=== PATIENT | male | born 1950 | race Caucasian/White ===

== ENCOUNTER 2016-05-25 05:16 | Emergency (ER) | payer OTHER ==
[~2016-05-25 05:16] MED LIST: CYMBALTA60 MG PO; DESYREL 50 MG T50 MG PO; FISH OIL 1,0001 EAC3 PO; IBUPROFEN800 MG PO; NEURONTIN 300300 MG PO; NORCO 10-325 T1 EACH PO; OXYCODONE HCL10 MG PO; PREDNISONE 10 M10 MG PO; PRILOSEC40 MG PO; REMERON15 MG PO; SUPER B COMPLE150 MG PO; SYNTHROID175 MCG PO; VITAMIN C 500500 MG PO; VITAMIN D 11000 UNIT PO; ZANAFLEX4 MG PO
== END 2016-05-25 06:00 | disposition left against medical advice (07) ==
LOC: ER1 05:16
DX: Z53.21 Procedure and treatment not carried out due to patient leaving prior to being seen by health care provider (principal)

== ENCOUNTER 2020-11-18 18:26 | Emergency (ER) | payer OTHER ==
[~2020-11-18] VITALS: Ht 180.3 cm; Wt 88.5 kg
[2020-11-18 19:02] LABS: HEMOGLOBIN 11.8 gm/dl (14.0-17.5); RED BLOOD COUNT 3.64 M/UL (4.20-5.50); WHITE BLOOD COUNT 6.7 K/UL (4.5-11.0)
[2020-11-18 19:26] LABS: BUN/CREATININE RATIO 18 (0-10)
[2020-11-19 04:52] LABS: HEMOGLOBIN 11.3 gm/dl (14.0-17.5); RED BLOOD COUNT 3.47 M/UL (4.20-5.50); WHITE BLOOD COUNT 5.4 K/UL (4.5-11.0)
[2020-11-19 05:15] LABS: BUN/CREATININE RATIO 23 (0-10)
== END 2020-11-19 10:45 | disposition left against medical advice (07) ==
LOC: ER1 18:26 → CDU 21:12 → ER1 21:12 → CDU 21:12
PROVIDERS: Internal Medicine; Student in an Organized Health Care Education/Training Program
DX: R55 Syncope and collapse (principal); N17.9 Acute kidney failure, unspecified; F11.20 Opioid dependence, uncomplicated; G89.29 Other chronic pain; M54.9 Dorsalgia, unspecified; I10 Essential (primary) hypertension; Z20.822 Contact with and (suspected) exposure to COVID-19
CPT/HCPCS: 70450; 71045; 71260; 72125; 72128; 72131; 80048; 80053; 82550; 82553; 83605; 83690; 83874; 84439; 84443; 84484; 85025; 86850; 86900; 86901; 93005; 99284; Q0177; Q9967; U0002